=== PATIENT | male | born 1975 | race Caucasian/White ===

== ENCOUNTER 2019-01-24 16:42 | Emergency (ER) | payer OTHER ==
[~2019-01-24] VITALS: Ht 175.3 cm; Wt 83.9 kg
--- NOTE | 2019-01-24 16:57 | NUR ---
Dr. Benavides at the bedside for MSE.
[2019-01-24] MEDS ORDERED: LIDOCAINE VISCUS 2% 15 ML UDC MM ONE (17:15)
[2019-01-24] MEDS ORDERED: LIDOCAINE VISCUS 2% 15 ML UDC ONE ×2 (17:16→17:17)
--- NOTE | 2019-01-24 18:00 | NUR ---
Patient discharged to home in stable conditon. Written and verbal after care instructions given. Patient verbalizes understanding of instructions.
== END 2019-01-24 18:10 | disposition home or self-care (01) ==
LOC: ER 16:42
DX: J02.9 Acute pharyngitis, unspecified (principal)
CPT/HCPCS: 70360; A4663